=== PATIENT | female | born 1965 | race Hispanic/Latino ===

== ENCOUNTER 2018-09-03 08:52 | Outpatient (CLI) | payer OTHER ==
--- NOTE | 2018-09-09 14:53 | MMO ---
BILATERAL SCREENING MAMMOGRAMS: Date: 09/03/18 Comparison made to prior exam from 2012. This patient's mammogram was interpreted with the assistance of computer-aided detection. FINDINGS: Scattered fibroglandular densities. No mass or distortion. There are benign-appearing calcifications. No suspicious finding or interval change. Recommend one year follow-up. IMPRESSION: BIRADS 2: Benign Finding(s) POS: ATIF
== END 2018-09-03 08:53 | disposition home or self-care (01) ==
LOC: SCSMAMMO 08:52
PROVIDERS: ATTEND Family Medicine
DX: Z12.31 Encounter for screening mammogram for malignant neoplasm of breast (principal)
CPT/HCPCS: 77067